=== PATIENT | female | born 1995 | race Caucasian/White ===

== ENCOUNTER 2023-08-27 01:32 | Emergency (ER) | payer OTHER ==
[~2023-08-27] VITALS: Ht 157.5 cm; Wt 71.0 kg
[2023-08-27 02:50] LABS: BASOPHILS % (AUTO) 0.6 % (0.0-2.0); EOSINOPHILS % (AUTO) 0.9 % (1.0-6.0); HEMATOCRIT 37.1 % (36-46); HEMOGLOBIN 12.4 g/dL (12.0-16.0); LYMPHOCYTES # (AUTO) 1.7 K/uL (1.0-4.8); LYMPHOCYTES % (AUTO) 21.8 % (22.0-44.0); MEAN CORPUSCULAR HEMOGLOBIN 30.5 pg (26.0-34.0); MEAN CORPUSCULAR HGB CONC 33.5 G/dL (31.0-37.0); MEAN CORPUSCULAR VOLUME 91 fL (80-100); MONOCYTES # (AUTO) 0.4 K/uL (0.1-1.0); MONOCYTES % (AUTO) 5.6 % (2.0-9.0); NEUTROPHILS # (AUTO) 5.4 K/uL (1.8-7.7); NEUTROPHILS % (AUTO) 71.1 % (40.0-70.0); PLATELET COUNT (AUTO) 141 K/uL (150-450); RED BLOOD CELL COUNT(AUTO) 4.08 MIL/uL (4.00-5.20); RED CELL DISTRIBUTION WIDTH 13.3 % (11.5-14.5); WHITE BLOOD COUNT (AUTO) 7.6 K/uL (4.5-11.0)
[2023-08-27 02:59] LABS: ANION GAP 8 mmol/L (8-16); CALCIUM, TOTAL 9.2 mg/dL (8.8-10.5); CARBON DIOXIDE 28 mmol/L (22-29); CHLORIDE 106 mmol/L (98-107); GLOMERULAR FILTR. RATE CALC > 60 mL/min (>60); GLUCOSE,RANDOM 91 mg/dL (70-110); POTASSIUM 4.4 mmol/L (3.5-5.1); SODIUM SERUM 142 mmol/L (136-145); UREA NITROGEN, BLOOD 11 mg/dL (7-18)
[2023-08-27 03:05] LABS: ALANINE AMINOTRANSFERASE 85 U/L (12-78); ALBUMIN 3.6 g/dL (3.4-5.0); ALKALINE PHOSPHATASE 162 U/L (46-116); ASPARTATE AMINOTRANSFERASE 157 U/L (15-37); BILIRUBIN,TOTAL 0.6 mg/dL (0.1-1.0); LIPASE 62 U/L (16-77); TOTAL PROTEIN, SERUM 6.6 g/dL (6.4-8.2)
[2023-08-27 03:07] LABS: TROPONIN I-HIGH SENSITIVITY 5 ng/L (<51)
[2023-08-27] MEDS ORDERED: PB/HYOSCY/ATR/SCOP/LIDO/MAALOX 55 ML BOTTLE PO ONE (03:30)
[2023-08-27 04:00] VITALS: BP 110/60; PULSE 66; RESP 16; TEMP 98.4
== END 2023-08-27 04:16 | disposition home or self-care (01) ==
LOC: EMS 01:34
DX: K29.70 Gastritis, unspecified, without bleeding (principal); R10.13 Epigastric pain; Z98.890 Other specified postprocedural states
CPT/HCPCS: 71045; 80053; 83690; 84484; 84703; 85025; 93005; 99285; 36415-L1; 36415-TC